=== PATIENT | female | born 1950 | race Caucasian/White ===

== ENCOUNTER 2023-11-01 23:39 | Inpatient (IN) | payer OTHER, SELFPAY ==
[2023-11-01 23:43] VITALS: BP 98/58; PULSE 78; TEMP 36.4; O2SAT 95; BMI 33.6
--- NOTE | 2023-11-01 23:43 | ECG_ITS ---
The [facility] Test Date: 2023-11-01 Pat Name: ARCADIO BAL Department: Room: - Gender: Female Electronic Warfare Specialist: : 1950 Requested By: [id number] Order Number: [id number] Reading MD: ERROL BEJARANO Measurements Intervals [place] Rate: 78 P: 30 NE: 154 QRS: 99 QRSD: 102 T: -82 QT: 432 QTc: 465 Interpretive Statements 1100 Sinus rhythm 2440 Incomplete right bundle branch block 5134 Right ventricular hypertrophy with repolarization abnormality Anteroseptal ischemia can't be excluded 9150 abnormal ECG No previous ECG available for comparison Electronically Signed On 11-02-2023 12:15:08 EDT by ERROL BEJARANO
[2023-11-01 23:53] VITALS: PULSE 78
--- NOTE | 2023-11-01 23:53 | ED_ITS ---
HPI - Chest Pain General Chief Complaint: Chest Pain Stated Complaint: chest pain Time Seen by Provider: 11/01/23 23:46 Source: patient Mode of arrival: ambulance Limitations: no limitations History of Present Illness HPI narrative: past history of CAD, DVT and PEs. presents complaining of dizziness that started some last PM and has been present all day. Tonight chest pain and dyspnea. Did have nausea earlier. chest pain has decreased. Still a little short of breath. Has swelling of her legs. States they are always swollen at night. no leg pain Related Data Home Medications ?Medication ?Instructions ?Recorded ?Confirmed amlodipine 5 mg tablet 2.5 mg PO .qd 11/02/23 11/02/23 apixaban 5 mg tablet (Eliquis) 5 mg PO Q12H 11/02/23 11/02/23 aspirin 81 mg capsule 81 mg PO DAILY 11/02/23 11/02/23 atorvastatin 80 mg tablet 80 mg PO DAILY 11/02/23 11/02/23 isosorbide mononitrate 30 mg 30 mg PO DAILY 11/02/23 11/02/23 tablet,extended release 24 hr metoprolol succinate 200 mg 200 mg PO .HS 11/02/23 11/02/23 tablet,extended release 24 hr omeprazole 20 mg capsule,delayed 20 mg PO DAILY 11/02/23 11/02/23 release Allergies Allergy/AdvReac Type Severity Reaction Status Date / Time Penicillins Allergy Unknown Unknown Verified 11/01/23 23:43 primidone Allergy Unknown Unknown Verified 11/01/23 23:43 Review of Systems ROS Status of ROS 10 or more systems reviewed and unremark able except as noted in history and below [facility] Medical History (Updated 11/02/23 @ 11:56 by Willem Andres MD) High cholesterol ?E78.00 - Pure hypercholesterolemia, unspecified (ICD-10) Hypertension ?I10 - Essential (primary) hypertension (ICD-10) Broken rib ?S22.39XA - Fracture of one rib, unspecified side, initial encounter for closed fracture (ICD-10) Pulmonary air embolism ?T79.0XXA - Air embolism (traumatic), initial encounter (ICD-10) DVT (deep venous thrombosis) ?I82.409 - Acute embolism and thrombosis of unspecified deep veins of unspecified lower extremity (ICD-10) Surgical History (Updated 11/02/23 @ 05:26 by Basia Nur) S/P triple vessel bypass ?Z95.1 - Presence of aortocoronary bypass graft (ICD-10) Social History (Updated 11/02/23 @ 05:27 by Basia Nur) Within the past year, how often did you have a drink containing alcohol: 2-3 times a week Within the past year, how many standard drinks containing alcohol did you have on a typical day: 5 or 6 Smoking status: Current every day smoker Non-prescribed substance use: cannabis (any form) and amphetam ayesha/methamphetamines Previous occupational history: NONE Highest level of school completed/degree received: 11th grade Are you now , , , , never or living with a partner: don't know In a typical week, how many times do you talk on the telephone with family, friends, or neighbors: 3 or more times per week How often do you attend faith or religion services: never Little interest or pleasure in doing things: not at all Feeling down, depressed, or hopeless: not at all Feel stressed/tense/nervous/anxious/difficulty sleeping: not at all Do you think of yourself as: straight/heterosexual Gender Identity: female Exam Constitutional Vital Signs, click to edit/add: Last Vital Signs Temp 97.6 F 11/02/23 11:41 Pulse 68 11/02/23 14:00 Resp 20 11/02/23 11:41 BP 126/80 11/02/23 11:41 Pulse Ox 92 L 11/02/23 11:41 O2 Del Method Room Air 11/02/23 11:41 Common normals: no apparent distress, average body habitus, oriented x3, no limitations, healthy appearing, alert and well nourished [facility] Common normals: normocephalic and head/scalp atraumatic Eye Common normals: EOMs intact bilaterally and conjunctivae normal Respiratory Common normals: normal respiratory effort, no retractions, no use of accessory muscles and clear to auscultation bilaterally Cardio Common normals: regular rate, regular rhythm, S1 normal heart sound and S2 normal heart sound GI Common normals: Normal to inspection, nondistended, normoactive bowel sounds present, soft to palpation and non-tender Extremity Other: 1+ edema bilat lower ext Neuro Common normals: oriented x3, CN's II-XII intact bilaterally, moves all extremities, no focal motor deficits and no sensory deficits noted Psych Appearance: grossly normal Course Vital Signs Vital signs: Vital Signs Temperature 97.5 F L 11/01/23 23:43 Pulse Rate 78 11/01/23 23:43 Respiratory Rate 23 H 11/01/23 23:43 Blood Pressure 98/58 11/01/23 23:43 Pulse Oximetry 95 11/01/23 23:43 Oxygen Delivery Method Room Air 11/01/23 23:43 Temperature 97.6 F 11/02/23 11:41 Pulse Rate 68 11/02/23 14:00 Respiratory Rate 20 11/02/23 11:41 Blood Pressure 126/80 11/02/23 11:41 Pulse Oximetry 92 L 11/02/23 11:41 Oxygen Delivery Method Room Air 11/02/23 11:41 MDM - Chest Pain MDM Narrative Medical decision making narrative: patient presents complaining chest pain, shortness of breath and nausea and vom iting. also complaint of dizziness. IV fluids ordered along with labs, cxray and EKG. EKG with NSR. incomplete RBBB and inverted Ts. Cxray with cardiomegaly. Fist troponin normal at 25 and d-dimer neg. Discussed with the hospitalist. Patient has past history of CAD will plan obs admission. will wait for 2nd troponin to result before admitting Lab Data Labs: Lab Results 11/01/23 11/01/23 11/02/23 Range/Units 00:00 23:56 02:00 WBC 8.9 (4.0-11.0) 10^3/uL RBC 3.64 L (4.20-5.40) 10^6/uL Hgb 11.7 L (12.0-16.0) g/dL Hct 36.2 (36.0-48.0) % MCV 99.5 H (81.0-99.0) fL MCH 32.1 (26.7-34.0) pg MCHC 32.3 (29.9-35.2) g/dL RDW 13.9 (11.0-15.0) % Plt Count 225 (150-450) 10^3/uL MPV 12.3 (9.5-13.5) fL Neut % (Auto) 73.6 (43.0-75.0) % Lymph % (Auto) 17.8 L (20.5-60.0) % Brooks % (Auto) 6.3 (1.7-12.0) % Eos % (Auto) 1.1 (0.9-7.0) % Baso % (Auto) 0.7 (0.2-2.0) % Neut # (Auto) 6.5 (1.4-6.5) 10^3/uL Lymph # (Auto) 1.6 (1.2-3.8) 10^3/uL Brooks # (Auto) 0.6 (0.3-0.8) 10^3/uL Eos # (Auto) 0.1 (0.0-0.7) 10^3/uL Baso # (Auto) 0.1 (0.0-0.1) 10^3/uL Abs Immat Gran (auto) 0.04 H (0.00-0.03) 10^3/uL Imm/Tot Granulo (auto) 0.5 (0.0-0.5) % APTT (22.3-36.2) sec D-Dimer 0.39 (<=0.59) mg/L FEU Sodium 137 (136-145) mmol/L Potassium 3.7 (3.5-5.1) mmol/L Chloride 103 (98-107) mmol/L Carbon Dioxide 24.1 (21.0-32.0) mmol/L Anion Gap 13.6 BUN 19.0 H (7.0-18.0) mg/dL Creatinine 1.70 H (0.55-1.02) mg/dL Est GFR ( Amer) 36 L (>=60) Est GFR (Non-Af Amer) 30 L (>=60) BUN/Creatinine Ratio 11.2 Glucose 119 H (74-106) mg/dL Calcium 8.9 (8.5-10.1) mg/dL Magnesium 1.8 (1.8-2.4) mg/dL Total Bilirubin 0.8 (0.2-1.0) mg/dL Direct Bilirubin 0.2 (0.0-0.2) mg/dL AST 15 (15-37) U/L ALT 17 (14-59) U/L Alkaline Phosphatase 55 (46-116) U/L Troponin I High Sens 25.8 47.7 (4.0-51.3) pg/mL NT-Pro-B Natriuret Pep (<=900.0) pg/mL Total Protein 6.5 (6.4-8.2) g/dL Albumin 3.1 L (3.4-5.0) g/dL Globulin 3.4 g/dL Albumin/Globulin Ratio 0.9 TSH 4.962 H (0.358-3.740) uIU/mL 11/02/23 11/02/23 11/02/23 Range/Units 05:26 08:30 11:35 WBC 7.4 (4.0-11.0) 10^3/uL RBC 3.41 L (4.20-5.40) 10^6/uL Hgb 10.9 L (12.0-16.0) g/dL Hct 33.9 L (36.0-48.0) % MCV 99.4 H (81.0-99.0) fL MCH 32.0 (26.7-34.0) pg MCHC 32.2 (29.9-35.2) g/dL RDW 13.9 (11.0-15.0) % Plt Count 181 (150-450) 10^3/uL MPV 12.6 (9.5-13.5) fL Neut % (Auto) (43.0-75.0) % Lymph % (Auto) (20.5-60.0) % Brooks % (Auto) (1.7-12.0) % Eos % (Auto) (0.9-7.0) % Baso % (Auto) (0.2-2.0) % Neut # (Auto) (1.4-6.5) 10^3/uL Lymph # (Auto) (1.2-3.8) 10^3/uL Brooks # (Auto) (0.3-0.8) 10^3/uL Eos # (Auto) (0.0-0.7) 10^3/uL Baso # (Auto) (0.0-0.1) 10^3/uL Abs Immat Gran (auto) (0.00-0.03) 10^3/uL Imm/Tot Granulo (auto) (0.0-0.5) % APTT 27.9 (22.3-36.2) sec D-Dimer (<=0.59) mg/L FEU Sodium 137 (136-145) mmol/L Potassium 4.1 (3.5-5.1) mmol/L Chloride 105 (98-107) mmol/L Carbon Dioxide 27.5 (21.0-32.0) mmol/L Anion Gap 8.6 BUN 19.0 H (7.0-18.0) mg/dL Creatinine 1.51 H (0.55-1.02) mg/dL Est GFR ( Amer) 41 L (>=60) Est GFR (Non-Af Amer) 34 L (>=60) BUN/Creatinine Ratio 12.6 Glucose 124 H (74-106) mg/dL Calcium 8.7 (8.5-10.1) mg/dL Magnesium (1.8-2.4) mg/dL Total Bilirubin (0.2-1.0) mg/dL Direct Bilirubin (0.0-0.2) mg/dL AST (15-37) U/L ALT (14-59) U/L Alkaline Phosphatase (46-116) U/L Troponin I High Sens 125.2 H* 172.2 H* 145.3 H* (4.0-51.3) pg/mL NT-Pro-B Natriuret Pep 83815.0 H* (<=900.0) pg/mL Total Protein (6.4-8.2) g/dL Albumin (3.4-5.0) g/dL Globulin g/dL Albumin/Globulin Ratio TSH (0.358-3.740) uIU/mL Discharge Plan Discharge Chief Complaint: Chest Pain Clinical Impression: Chest pain Patient Disposition: Admitted as Observation Condition: Fair Discharge Date/Time: 11/02/23 02:37
--- NOTE | 2023-11-01 23:56 | XR_ITS ---
The [address] [address] Patient Name: ARCADIO BAL MRN: [id number] date: 1950 Sex: F Assigned Patient Location: ED.MAIN Current Patient Location: ER Accession/Order Number: [id number] Exam Date: 11/01/2023 23:59 Report Date: 11/02/2023 00:48 At the request of: PETER ESTEVEZ Procedure: XR chest 1V EXAMINATION: XR chest 1V, , 11/01/2023 11:59 PM EDT INDICATION: short of breath HISTORY: Ordering Provider Reason for Exam: short of breath Technologist Note: Additional: COMPARISON: None. TECHNIQUE: Chest x-ray: One view. FINDINGS: Enlarged cardiac silhouette is seen. Patient is postmedian sternotomy. No dense focal consolidation, pneumothorax or pleural effusion is seen. Mild diffuse bony demineralization is seen. Fusion device is seen projecting over the visualized lower cervical spine. XR/XR chest 1V IMPRESSION: Enlarged cardiac silhouette. Otherwise, no acute cardiopulmonary process. Electronically authenticated by: YEFRI LIZAMA Date: 11/02/2023 00:48
[2023-11-02] VITALS (8 sets, daily range): BP systolic 123–149; BP diastolic 78–94; PULSE 67–77; TEMP 36.4–36.6; O2SAT 92; BMI 29.6; BMI 13.5
[2023-11-02 00:17] LABS: Basophils Absolute Auto 0.1 10^3/uL (0.0-0.1); Basophils Percent Auto 0.7 % (0.2-2.0); Eosinophils Absolute Auto 0.1 10^3/uL (0.0-0.7); Eosinophils Percent Auto 1.1 % (0.9-7.0); Hematocrit 36.2 % (36.0-48.0); Hemoglobin 11.7 g/dL (12.0-16.0); Immature Granulocytes Abs Auto 0.04 10^3/uL (0.00-0.03); Immature Granulocytes Pct Auto 0.5 % (0.0-0.5); Lymphocytes Absolute Auto 1.6 10^3/uL (1.2-3.8); Lymphocytes Percent Auto 17.8 % (20.5-60.0); Mean Corpuscular HGB Conc 32.3 g/dL (29.9-35.2); Mean Corpuscular Hemoglobin 32.1 pg (26.7-34.0); Mean Corpuscular Volume 99.5 fL (81.0-99.0); Mean Platelet Volume 12.3 fL (9.5-13.5); Monocytes Absolute Auto 0.6 10^3/uL (0.3-0.8); Monocytes Percent Auto 6.3 % (1.7-12.0); Neutrophils Absolute Auto 6.5 10^3/uL (1.4-6.5); Neutrophils Percent Auto 73.6 % (43.0-75.0); Platelet Count 225 10^3/uL (150-450); Red Blood Count 3.64 10^6/uL (4.20-5.40); Red Cell Distribution Width 13.9 % (11.0-15.0); White Blood Count 8.9 10^3/uL (4.0-11.0)
[2023-11-02 00:33] LABS: D Dimer 0.39 mg/L FEU (<=0.59)
[2023-11-02 00:34] LABS: Anion Gap 13.6; BUN Creatinine Ratio 11.2; Calcium 8.9 mg/dL (8.5-10.1); Carbon Dioxide 24.1 mmol/L (21.0-32.0); Chloride 103 mmol/L (98-107); Estimated GFR (African America 36 (>=60); Estimated GFR (Non-African Ame 30 (>=60); Glucose 119 mg/dL (74-106); Potassium 3.7 mmol/L (3.5-5.1); Sodium 137 mmol/L (136-145); Troponin I High Sensitivity 25.8 pg/mL (4.0-51.3)
[2023-11-02] MEDS: 0.9 % SODIUM CHLORIDE 1,000 ML 999 ML IV (00:40)
[2023-11-02 05:31] LABS: Bilirubin Direct 0.2 mg/dL (0.0-0.2); Bilirubin Total 0.8 mg/dL (0.2-1.0); Magnesium 1.8 mg/dL (1.8-2.4)
[2023-11-02 05:33] LABS: Alanine Aminotransferase 17 U/L (14-59); Albumin Globulin Ratio 0.9; Albumin Level 3.1 g/dL (3.4-5.0); Alkaline Phosphatase 55 U/L (46-116); Aspartate Amino Transferase 15 U/L (15-37); Globulin 3.4 g/dL; Total Protein 6.5 g/dL (6.4-8.2)
[2023-11-02 05:34] LABS: Thyroid Stimulating Hormone 4.962 uIU/mL (0.358-3.740)
[2023-11-02 05:37] LABS: Troponin I High Sensitivity 47.7 pg/mL (4.0-51.3)
[2023-11-02 06:11] LABS: Hematocrit 33.9 % (36.0-48.0); Hemoglobin 10.9 g/dL (12.0-16.0); Mean Corpuscular HGB Conc 32.2 g/dL (29.9-35.2); Mean Corpuscular Volume 99.4 fL (81.0-99.0); Mean Platelet Volume 12.6 fL (9.5-13.5); Platelet Count 181 10^3/uL (150-450); Red Blood Count 3.41 10^6/uL (4.20-5.40); Red Cell Distribution Width 13.9 % (11.0-15.0); White Blood Count 7.4 10^3/uL (4.0-11.0)
[2023-11-02 06:13] LABS: Anion Gap 8.6; BUN Creatinine Ratio 12.6; Calcium 8.7 mg/dL (8.5-10.1); Carbon Dioxide 27.5 mmol/L (21.0-32.0); Chloride 105 mmol/L (98-107); Estimated GFR (African America 41 (>=60); Estimated GFR (Non-African Ame 34 (>=60); Glucose 124 mg/dL (74-106); Potassium 4.1 mmol/L (3.5-5.1); Sodium 137 mmol/L (136-145)
[2023-11-02 06:26] LABS: Troponin I High Sensitivity 125.2 pg/mL (4.0-51.3)
--- NOTE | 2023-11-02 08:02 | ECG_ITS ---
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
[2023-11-02] MEDS: ISOSORBIDE MONONITRATE 30 MG TAB.ER.24H PO (08:55)
[2023-11-02] MEDS: APIXABAN 5 MG TABLET PO (08:55)
[2023-11-02] MEDS: OMEPRAZOLE 20 MG CAPSULE.DR PO (08:56)
[2023-11-02] MEDS: ASPIRIN 81 MG TAB.CHEW PO (08:56)
[2023-11-02 09:00] LABS: Troponin I High Sensitivity 172.2 pg/mL (4.0-51.3)
[2023-11-02] MEDS: FUROSEMIDE 40 MG/4 ML VIAL 80 MG IVP (10:39)
--- NOTE | 2023-11-02 10:52 | P.HP_ITS ---
HPI H&P: HPI History of Present Illness Chief complaint: chest pain Narrative: Patient was seen and evaluated in the emergency room due to increasing shortness of breath. It was worse in the last several days but has been ongoing for the last several weeks. She had not sought medical care for this. In the ER found to have initial troponin and second troponin that was negative, but with her labored breathing she was admitted. Patient does have a history of triple- vessel bypass. No recent stress test or echocardiograms that she can recall. Her triple bypass was in [place]. Was not due to a heart attack, just changes on EKG with stress testing. And abnormal heart cath, patient states she went for the heart cath and woke up with triple-vessel bypass When I saw patient up on the medical surgical floor, although resting comfortably in bed she definitely had labored breathing. Denies any chest pain. Just a breathing issue. She also has some peripheral edema that was significantly changed in the last several weeks. Opioid HPI Opioid Management Most Recent Pain and Opioid Data: Last Pain Scale 8 11/02/23 00:09 Last Pain Assessment 11/02/23 11:41 Last ED Pain Assessment 11/02/23 00:09 Last ORT Total Score 8 11/02/23 02:40 Last ORT Risk Category High Risk 11/02/23 02:40 Review of Systems ROS Status of ROS 10 or more systems reviewed and unremark able except as noted in history and below PFSH PFS Medical History (Updated 11/02/23 @ 11:56 by Willem Andres MD) High cholesterol ?E78.00 - Pure hypercholesterolemia, unspecified (ICD-10) Hypertension ?I10 - Essential (primary) hypertension (ICD-10) Broken rib ?S22.39XA - Fracture of one rib, unspecified side, initial encounter for closed fracture (ICD-10) Pulmonary air embolism ?T79.0XXA - Air embolism (traumatic), initial encounter (ICD-10) DVT (deep venous thrombosis) ?I82.409 - Acute embolism and thrombosis of unspecified deep veins of unspecified lower extremity (ICD-10) Surgical History (Updated 11/02/23 @ 05:26 by Basia Nur) S/P triple vessel bypass ?Z95.1 - Presence of aortocoronary bypass graft (ICD-10) Social History (Updated 11/02/23 @ 05:27 by Basia Nur) Within the past year, how often did you have a drink containing alcohol: 2-3 times a week Within the past year, how many standard drinks containing alcohol did you have on a typical day: 5 or 6 Smoking status: Current every day smoker Non-prescribed substance use: cannabis (any form) and amphetamines/methamphetamines Previous occupational history: NONE Highest level of school completed/degree received: 11th grade Are you now , , , , never or living with a partner: don't know In a typical week, how many times do you talk on the telephone with family, friends, or neighbors: 3 or more times per week How often do you attend buddhism or sikh services: never Little interest or pleasure in doing things: not at all Feeling down, depressed, or hopeless: not at all Feel stressed/tense/nervous/anxious/difficulty sleeping: not at all Do you think of yourself as: straight/heterosexual Gender Identity: female Meds Home Medications and Allergies Home Medications ?Medication ?Instructions ?Recorded ?Confirmed ?Type amlodipine 5 mg tablet 2.5 mg PO .qd 11/02/23 11/02/23 History apixaban 5 mg tablet (Eliquis) 5 mg PO Q12H 11/02/23 11/02/23 History aspirin 81 mg capsule 81 mg PO DAILY 11/02/23 11/02/23 History atorvastatin 80 mg tablet 80 mg PO DAILY 11/02/23 11/02/23 History isosorbide mononitrate 30 mg 30 mg PO DAILY 11/02/23 11/02/23 History tablet,extended release 24 hr metoprolol succinate 200 mg 200 mg PO .HS 11/02/23 11/02/23 History tablet,extended release 24 hr omeprazole 20 mg capsule,delayed 20 mg PO DAILY 11/02/23 11/02/23 History release Allergies Allergy/AdvReac Type Severity Reaction Status Date / Time Penicillins Allergy Unknown Unknown Verified 11/01/23 23:43 primidone Allergy Unknown Unknown Verified 11/01/23 23:43 Exam Constitutional Vital Signs, click to edit/add: Last Vital Signs Temp 97.8 F 11/02/23 07:45 Pulse 71 11/02/23 10:00 Resp 20 11/02/23 07:45 BP 149/94 H 11/02/23 07:45 Pulse Ox 92 L 11/02/23 07:45 O2 Del Method Room Air 11/02/23 07:45 Documenting provider has reviewed patient's vital signs: yes Common normals: apparent distress (Moderate respiratory distress) Chest Common normals: inspection of chest normal Respiratory Common normals: abnormal respiratory effort (Moderate respiratory distress) Auscultation: rales Cardio Common normals: regular rate and regular rhythm Extremity Common normals: abnormal to inspection (3+ edema) Results Labs Labs: Short CBC 11/01/23 11/02/23 Range/Units 23:56 05:26 WBC 8.9 7.4 (4.0-11.0) 10^3/uL Hgb 11.7 L 10.9 L (12.0-16.0) g/dL Hct 36.2 33.9 L (36.0-48.0) % Plt Count 225 181 (150-450) 10^3/uL BMP 11/01/23 11/02/23 00:00 05:26 Sodium 137 137 Potassium 3.7 4.1 Chloride 103 105 Carbon Dioxide 24.1 27.5 BUN 19.0 H 19.0 H Creatinine 1.70 H 1.51 H Glucose 119 H 124 H Calcium 8.9 8.7 Liver Function 11/01/23 Range/Units 23:56 Total Bilirubin 0.8 (0.2-1.0) mg/dL Direct Bilirubin 0.2 (0.0-0.2) mg/dL AST 15 (15-37) U/L ALT 17 (14-59) U/L Alkaline Phosphatase 55 (46-116) U/L Albumin 3.1 L (3.4-5.0) g/dL Assessment and Plan Assessment and Plan (1) Chest pain: (2) Acute combined systolic (congestive) and diastolic (congestive) heart failure: (3) Acute non-ST elevation myocardial infarction (NSTEMI): Plan Admission findings: Respiratory distress, uncontrolled hypertension, iron deficiency anemia, elevated TSH-patient admitted for chest pain rule out [place]. Chest pain: Patient with significant elevating high-sensitivity troponins, already received a dose of Eliquis, will see about heparin drip. With the acute combined congestive heart failure and the acute elevation in her troponin and the EKG changes significant with inferior lateral ischemia, patient be transferred to [facility] Acute combined congestive heart failure-BNP 17,000. She denies any history of heart failure in the past this is likely secondary to the NSTEMI as outlined above Acute NSTEMI with EKG changes significant for inferior lateral ischemia-continue to trend troponins until transfer completed. Chronic kidney disease stage II-improved somewhat today. History of coronary artery [id number]-[id number] bypass but she cannot recall how long ago it was. Chest x-ray consistent with left ventricular hypertrophy-will need echocardiogram likely completed at transfer facility Mild protein calorie malnutrition-diet management Iron deficiency anemia and possibly anemia of chronic kidney disease-Down slightly today, but being placed on heparin will add Protonix Elevated TSH-can check levels at outside facility Hypertension-continue with home medications except holding off on the amlodipine his blood pressure soft this morning Hypercholesterolemia-continue with home medications GERD-Protonix as outlined above Admission status: Patient with chest pain that is progressed now to acute combined congestive heart failure secondary to acute NSTEMI with ST changes significant for inferior lateral ischemia-medically necessary treatment to last more than 2 midnights. Inpatient status
[2023-11-02] MEDS: PANTOPRAZOLE SODIUM 40 MG VIAL IV (11:36)
[2023-11-02 12:00] LABS: Troponin I High Sensitivity 145.3 pg/mL (4.0-51.3)
[2023-11-02 12:03] LABS: Partial Thromboplastin Time 27.9 sec (22.3-36.2)
[2023-11-02] MEDS: ACETAMINOPHEN 325 MG TABLET 650 MG PO (12:53)
[2023-11-02] MEDS: HEPARIN SODIUM,PORCINE/D5W 25,000 UNIT/500 ML IV.SOLN 13 UNIT IV (13:40)
[2023-11-02 14:53] LABS: Troponin I High Sensitivity 113.3 pg/mL (4.0-51.3)
--- NOTE | 2023-11-02 15:18 | PC.NURSE ---
Report called to Anna at [facility]. Transfer time approx 3:40 pm
== END 2023-11-02 15:58 | disposition short-term general hospital (02) | DRG 280 ==
LOC: ER 11-02 00:03 → MS 11-02 05:26
PROVIDERS: Registered Nurse; Admitting Provider Family Medicine; Emergency Provider Internal Medicine; Visit Provider Family Medicine
DX: I21.4 Non-ST elevation (NSTEMI) myocardial infarction (principal); I50.41 Acute combined systolic (congestive) and diastolic (congestive) heart failure; I13.0 Hypertensive heart and chronic kidney disease with heart failure and stage 1 through stage 4 chronic kidney disease, or unspecified chronic kidney disease; E44.1 Mild protein-calorie malnutrition; Z68.1 Body mass index [BMI] 19.9 or less, adult; I25.10 Atherosclerotic heart disease of native coronary artery without angina pectoris; Z86.718 Personal history of other venous thrombosis and embolism; Z86.711 Personal history of pulmonary embolism; Z79.82 Long term (current) use of aspirin; E78.00 Pure hypercholesterolemia, unspecified; Z95.1 Presence of aortocoronary bypass graft; F17.200 Nicotine dependence, unspecified, uncomplicated; R06.03 Acute respiratory distress; D50.9 Iron deficiency anemia, unspecified; R94.6 Abnormal results of thyroid function studies; N18.2 Chronic kidney disease, stage 2 (mild); K21.9 Gastro-esophageal reflux disease without esophagitis
CPT/HCPCS: 36415; 71045; 80048; 80076; 83735; 83880; 84443; 84484; 85025; 85027; 85378; 85730; 93005; 96374; 96375; 99285; J1644; J1940